=== PATIENT | male | born 2000 | race Caucasian/White ===

== ENCOUNTER 2020-05-06 22:45 | Emergency (ER) | payer BC ==
[~2020-05-06] VITALS: Wt 68.0 kg
[~2020-05-06 22:45] MED LIST: AMOXIL250 MG/5 M PO; Bactroban Oint22 GM T; DAILY VITAMINS1 TAB PO; HYDROCODONE BIT1 T11 PO; PREDNISONE50 MG PO; ZOFRAN4 MG PO
[2020-05-06] MEDS ORDERED: SILVADENE,SSD C50 GM PO (23:33)
== END 2020-05-07 00:40 | disposition home or self-care (01) ==
LOC: ED 22:45
DX: L55.1 Sunburn of second degree (principal)